=== PATIENT | female | born 1940 | race African-American/Black ===

== ENCOUNTER → 2017-03-26 | Outpatient (CLI) | payer OTHER ==
[~2017-03-26] MED LIST: AMLODIPINE BESY10 MG ORAL; BP MED; ENALAPRIL MALEA10 MG ORAL
--- NOTE | 2017-03-29 16:35 | Diagnostic Imaging Report ---
Indication: SCREEN Technique: Bilateral Craniocaudal and mediolateral oblique views were obtained. Comparison: 02/05/2016, to 09/17/15 Findings: The breasts demonstrate scattered fibroglandular densities. No parenchymal asymmetry nor architectural distortion. There are benign calcifications bilaterally. No dominant masses nor suspicious clustered microcalcifications. No skin thickening nor nipple retraction. No axillary adenopathy. No significant interim change. Impression: No mammographic evidence of malignancy. Routine annual rescreening recommended. BI-RADS category 2-benign. Breast density BI-RADS type B.
== END | disposition home or self-care (01) ==
LOC: MAMMO 09:59
DX: Z12.31 Encounter for screening mammogram for malignant neoplasm of breast (principal)
CPT/HCPCS: 77067

== ENCOUNTER 2020-01-31 13:18 | Emergency (ER) | payer MEDICARE, MEDICAID ==
[~2020-01-31] VITALS: Ht 165.1 cm; Wt 66.2 kg
[2020-01-31 13:26] VITALS: BP 127/63
[2020-01-31] MEDS ORDERED: Omnipaque-300 100ml vial INJ PRN (13:45)
[2020-01-31] MEDS: Ketorolac 30mg Inj IV ONE ×2 (14:28→14:35)
[2020-01-31 14:33] LABS: BASOPHILS % (AUTO) 1.3 % (0.0-2.0); EOSINOPHILS % (AUTO) 5.7 % (0.0-3.0); HEMATOCRIT 36.3 % (37.0-47.0); HEMOGLOBIN 12.4 G/DL (12.0-16.0); LYMPHOCYTES % (AUTO) 36.1 % (20.0-45.0); MEAN CORPUSCULAR VOLUME 86 FL (80-99); MONOCYTES % (AUTO) 6.5 % (1.0-10.0); NEUTROPHILS % (AUTO) 50.4 % (45.0-75.0); PLATELET COUNT 328 K/UL (150-450); RED BLOOD COUNT 4.21 M/UL (4.20-5.40); RED CELL DISTRIBUTION WIDTH 11.9 % (11.6-14.8); WHITE BLOOD COUNT 6.3 K/UL (4.8-10.8)
[2020-01-31 14:49] LABS: ANION GAP 13 mmol/L (5-15); BLOOD UREA NITROGEN 12 mg/dL (7-18); CALCIUM 9.5 MG/DL (8.5-10.1); CARBON DIOXIDE 25 MMOL/L (21-32); CHLORIDE 108 MMOL/L (98-107); CREATININE 0.9 MG/DL (0.55-1.30); POTASSIUM 3.8 MMOL/L (3.5-5.1); SODIUM 146 MMOL/L (136-145)
[2020-01-31 14:53] LABS: ALANINE AMINOTRANSFERASE 31 U/L (12-78); ALBUMIN 3.8 G/DL (3.4-5.0); ALBUMIN/GLOBULIN RATIO 0.9 (1.0-2.7); ALKALINE PHOSPHATASE 93 U/L (46-116); ASPARTATE AMINO TRANSFERASE 21 U/L (15-37); BILIRUBIN,TOTAL 0.5 MG/DL (0.2-1.0)
[2020-01-31 15:08] LABS: APPEARANCE,URINE CLEAR; BILIRUBIN, URINE NEGATIVE (NEGATIVE); COLOR,URINE PALE YELLOW; GLUCOSE, URINE (UA) NEGATIVE (NEGATIVE); KETONES,URINE NEGATIVE (NEGATIVE); LEUKOCYTE ESTERASE ,URINE 1+ (NEGATIVE); NITRITE,URINE NEGATIVE (NEGATIVE); PH,URINE 6.5 (4.5-8.0); PROTEIN,URINE NEGATIVE (NEGATIVE); UROBILINOGEN,URINE NORMAL MG/DL (0.0-1.0)
--- NOTE | 2020-01-31 15:39 | Diagnostic Imaging Report ---
Indication: Headache dizziness and vertigo Technique: Contiguous 5 mm thick transaxial imaging of the head obtained in a Siemens Sensation [address] scanner. Soft tissue and bone windows generated. Automatic Exposure Control was utilized. Total Dose length Product (DLP): 1098.9mGycm CT Dose Index Volume (CTDIvol): 53.4 mGy Comparison: none Findings: There is mild prominence of the ventricles, basal cisterns, and cerebral sulci consistent with atrophy. Mild, nonspecific, white matter hypoattenuation is noted throughout the brain consistent with chronic small vessel disease. There is no midline shift, edema, acute hemorrhage, mass effect, or abnormal extra-axial fluid collections. Bones are unremarkable. Impression: No acute intracranial bleed, mass effect or edema. Mild atrophy of the brain. Nonspecific white matter hypoattenuation probably due to chronic small vessel disease. The CT scanner at [facility] is accredited by the [employer] and the scans are performed using dose optimization techniques as appropriate to a performed exam including Automatic Exposure control.
--- NOTE | 2020-01-31 15:53 | Diagnostic Imaging Report ---
INDICATION: Abdominal pain TECHNIQUE: Continuous helical transaxial imaging of the abdomen and pelvis was obtained from the lung bases to the pubic symphysis during intravenous contrast administration. Coronal 2-D reformats were also obtained. Study obtained in a Siemens sensation [address] Automatic Exposure Control was utilized. Total Dose length Product (DLP): 258.[address] Dose Index Volume (CTDIvol): 5.7 mGy COMPARISON: 12/10/2014 FINDINGS: Lungs: Mild reticular densities at the lung bases consistent with atelectasis. The heart is mildly prominent size. Aorta is mildly calcified. Liver: Some heterogeneity demonstrated within the liver which is nonspecific. No surface nodularity definite seen. Gallbladder/biliary system: Gallbladder is absent. Mild biliary ductal prominence is noted but stable in appearance. Spleen: Unremarkable Pancreas: Unremarkable Kidneys/Bladder: No hydronephrosis identified. Both kidneys enhance symmetrically. The urinary bladder is unremarkable.. Adrenal glands: Unremarkable Aorta/IVC: Moderate calcification demonstrated. Bowel: Appendix is normal. There is moderate retention of feces within the colon. No small bowel dilatation seen. Peritoneum: No free fluid seen. Some calcifications noted within the uterus likely fibroids. There is a small right inguinal hernia containing fat.. Bones: There is narrowing of intervertebral discs and accompanying endplate osteophyte formation. Hypertrophied facet joints also demonstrated. IMPRESSION: No acute findings. Mild heterogeneity of the liver nonspecific Status post cholecystectomy. Mild prominence of the biliary ducts likely normal accounting for age, and certainly stable. Arterial vascular disease Moderate stool retention. Some calcifications in the uterus may be related to fibroids. Degenerative changes of the spine The CT scanner at [facility] is accredited by the [employer] and the scans are performed using dose optimization techniques as appropriate to a performed exam including Automatic Exposure control.
--- NOTE | 2020-01-31 16:12 | Emergency Room Report ---
History of Present Illness General Chief Complaint: Abdominal Pain Source: Patient (Carla Henry) Present Illness HPI 79-year-old female with history of hypertension currently controlled here with his son sent from Dr. Emerson's office for abdominal CT scan due to having left lower quadrant pain x2 days. Patient denies any diarrhea, constipation, blood in stool. Reports that she often has constipation however has not had any constipation the past few days. Denies fever and chills, nausea vomiting, diffuse abdominal pain. Reports that she removed her gallbladder few years ago. Also complains of several months of vertigo and left ear tinnitus. Reports that his primary doctor is aware of it. No unilateral generalized weakness noted. Patient is neurovascularly intact. Denies any fall or injury. Denies any recent travel. Denies urinary frequency and urgency. Reports that also has history of uterine fibroids. Has not taken medication today for symptom relief. Also has a prescription from Dr. Emerson for Flagyl and levofloxacin. (Carla Henry) Allergies: Coded Allergies: PENICILLINS (Verified Allergy, Unknown, 06/20/09) SULFA (SULFONAMIDE ANTIBIOTICS) (Verified Allergy, Unknown, 06/20/09) Patient History Past Medical History: see triage record Past Surgical History: none Pertinent Family History: none Now: No : 1 Para: 1 Reviewed Nursing Documentation: PMH: Agreed; PSxH: Agreed (Carla Henry) Nursing Documentation-PMH Past Medical History: No History, Except For Hx Cardiac Problems: Yes Hx Hypertension: Yes Hx Cancer: No Hx Gastrointestinal Problems: Yes - hx abd pain Hx Neurological Problems: No (Carla Henry) Review of Systems All Other Systems: negative except mentioned in HPI (Carla Henry) Physical Exam Vital Signs Date Time Temp Pulse Resp B/P (MAP) Pulse Ox O2 Delivery O2 Flow Rate FiO2 01/31/20 13:26 97.9 74 19 127/63 (84) 94 Room Air Sp02 EP Interpretation: reviewed, normal General Appearance: no apparent distress, alert, GCS 15, non-toxic Head: normocephalic, atraumatic Eyes: bilateral eye normal inspection, bilateral eye PERRL ENT: hearing grossly normal, normal pharynx, no angioedema, normal voice Neck: full range of motion, supple/symm/no masses Respiratory: chest non-tender, lungs clear, normal breath sounds, no rhonchi, no respiratory distress, no retraction, no wheezing, speaking full sentences Cardiovascular #1: regular rate, rhythm, no edema, no murmur, normal capillary refill Cardiovascular #2: 2+ carotid (R), 2+ carotid (L), 2+ radial (R), 2+ radial (L) Gastrointestinal: normal bowel sounds, non tender, soft, no mass, no organomegaly, no peritonitis, no bruit, non-distended, no guarding, no hernia, no pulsatile mass, no rebound Rectal: deferred Genitourinary: no CVA tenderness Musculoskeletal: back normal, no calf tenderness Neurologic: alert, motor strength/tone normal, oriented x3, sensory intact, responsive, speech normal Psychiatric: judgement/insight normal, memory normal, mood/affect normal, no suicidal/homicidal ideation Skin: no rash Lymphatic: normal inspection, no adenopathy (Carla Henry) Medical Decision Making PA Attestation All my diagnosis and treatment plans were reviewed ad discussed with my supervising physician Dr. Ladd (Carla Henry) Medicare Attestation The history of Rosy Parker has been reviewed and management options for her have been examined and discussed by Zachariah Ladd. I have personally examined and interviewed the patient. (Zachariah Ladd MD) Diagnostic Impression: Primary Impression: Fecal retention Additional Impression: Vertigo ER Course 79-year-old female with history of hypertension currently controlled here with his son sent from Dr. Emerson's office for abdominal CT scan due to having left lower quadrant pain x2 days. Patient denies any diarrhea, constipation, blood in stool. Reports that she often has constipation however has not had any constipation the past few days. Denies fever and chills, nausea vomiting, diffuse abdominal pain. Reports that she removed her gallbladder few years ago. Also complains of several months of vertigo and left ear tinnitus. Reports that his primary doctor is aware of it. No unilateral generalized weakness noted. Patient is neurovascularly intact. Denies any fall or injury. Denies any recent travel. Denies urinary frequency and urgency. Reports that also has history of uterine fibroids. Has not taken medication today for symptom relief. Also has a prescription from Dr. Emerson for Flagyl and levofloxacin. Ddx considered but are not limited to: appendicitis, cholecystis, gastritis, gastroenteritis, UTI, pyelonephritis, SBO, diverticulitis, influenza with GI manifestation, [place], fecal retention, CVA, TIA peripheral vertigo, central vertigo Vital signs: are WNL, pt. is afebrile H&PE are most consistent with: Fecal retention, unspecified vertigo ORDERS: abdominal CT, abdominal pain set, EKG, troponin, Colace ED INTERVENTIONS: NS bolus, Toradol DISCHARGE: At this time pt. is stable for d/c to home. Will provide printed patient care instructions, and any necessary prescriptions. Care plan and follow up instructions have been discussed with the patient prior to discharge. Patient to follow-up primary care provider, increase fiber intake also have primary doctor sent to neurologist if needed over brain if needed, due to chronicity of vertigo. If worsening symptoms return to emergency room. (Carla Henry) EKG Diagnostic Results Rate: normal Rhythm: NSR ST Segments: no acute changes Other Impression No acute ST changes (Carla Henry) Chest X-Ray Diagnostic Results Chest X-Ray Diagnostic Results : Chest X-Ray Ordered: Yes # of Views/Limited/Complete: 1 View Indication: Other EP Interpretation: Yes PA Xray: Interpretation reviewed, by supervising MD, and agrees with findings. Interpretation: no consolidation, no effusion, no pneumothorax Impression: No acute disease Electronically Signed by: Carla Wilkins PA-C) CT/MRI/US Diagnostic Results CT/MRI/US Diagnostic Results #1: Imaging Test Ordered: CT head no contrast Impression No intracranial bleed, within normal limits CT/MRI/US Diagnostic Results #2: Imaging Test Ordered: CT abdomen pelvis with contrast Impression Fecal retention, uterine fibroids, otherwise within normal limits no diverticulosis or diverticulitis (Carla Henry) Last Vital Signs Date Time Temp Pulse Resp B/P (MAP) Pulse Ox O2 Delivery O2 Flow Rate FiO2 01/31/20 13:45 74 19 Room Air 01/31/20 13:26 97.9 127/63 94 Status: improved (Carla Henry) Disposition: HOME, SELF-CARE Condition: Stable Scripts Docusate Sodium* (COLACE*) 100 Mg Capsule 100 MG ORAL TWICE A DAY for 10 Days, #20 CAP Prov: Carla Henry 01/31/20 Patient Instructions: Abdominal Pain, Adult, Constipation, Adult, [id number] , Vertigo, [id number] Carla Henry Jan 31, 2020 16:12 Zachariah Ladd MD Feb 13, 2020 14:40
[2020-01-31 16:20] VITALS: BP 127/63
[2020-01-31] MEDS ORDERED: COLACE100 MG ORAL (16:33)
[2020-01-31 16:57] VITALS: BP 127/63
== END 2020-01-31 16:57 | disposition home or self-care (01) ==
LOC: EMR 16:57
DX: K59.00 Constipation, unspecified (principal); R42 Dizziness and giddiness; I10 Essential (primary) hypertension; Z88.0 Allergy status to penicillin; Z88.2 Allergy status to sulfonamides; Z90.49 Acquired absence of other specified parts of digestive tract
CPT/HCPCS: 36415; 70450; 74177; 80053; 81003; 83690; 84484; 85025; 85610; 85730; 93005; 96360; 99284; J7030; Q9967